=== PATIENT | male | born 1990 | race Caucasian/White ===

== ENCOUNTER 2025-05-24 17:33 | Emergency (ER) | payer OTHER, SELFPAY ==
--- NOTE | 2025-05-24 17:36 | ED.MALEGU ---
HPI - Male Genitourinary General Chief complaint: Urogenital-Male Stated complaint: Groin Pain Time Seen by Provider: 05/24/25 17:47 Source: patient and RN notes reviewed Mode of arrival: ambulatory Limitations: no limitations History of Present Illness HPI Narrative: 35-year-old male presents with concern for right testicle pain. He reports symptoms for 4-5 days. He denies any swollen testicle, red testicle. Reports it is slightly tender to touch. He denies fever, aches, chills, sweats. He denies dysuria, frequency, urgency, penile discharge. He is not concern for STDs. MD Complaint: testicle pain Related Data Allergies Allergy/AdvReac Type Severity Reaction Status Date / Time No Known Allergies Allergy Verified 05/24/25 17:37 Review of Systems Review of Systems: CONSTITUTIONAL: Denies malaise, chills, sweats, or fever. CARDIOVASCULAR: Denies chest pain, palpitations, or edema. RESPIRATORY: Denies cough or dyspnea. GASTROINTESTINAL: Denies abdominal pain, nausea, vomiting, diarrhea GENITOURINARY: Reports tenderness in the right scrotum. He Denies dysuria, frequency, urgency, suprapubic pressure. Denies flank pain or hematuria. SKIN: Denies rash or itching. MUSCULOSKELETAL: Denies back pain or myalgia. All systems reviewed & are unremarkable except as noted in HPI and below PMFSH Family History Family History (Updated 08/11/18 @ 16:13 by DOCTOR UNKNOWN) Father Diabetes mellitus Patient's father is in good health Other Hypertension Social History Social History Smoking status: Former smoker Smoking end date: 10/27/16 Alcohol intake: current Comments At time of signature, agree with nursing past medical, surgical, social and family history. There is no relevant family history pertinent to the presenting complaint Exam Narrative: GENERAL: Well-appearing, well-nourished, and in no acute distress. HEAD: Normocephalic. EYES: PERRLA, conjunctivae clear. NECK: Supple. No lymphadenopathy CHEST: Clear to auscultation. No respiratory distress. HEART: Regular rate and rhythm. SKIN: Warm, dry, no rash. NEURO: Alert and oriented x3. PSYCH: Normal mood and affect Course Course Emergency Course: Patient is aware of diagnosis, understands and agrees to treatment plan. Anticipatory guidance given. Patient agrees to follow-up as directed and is aware of reasons to seek care at the emergency department. Portions of this record may have been created with voice recognition software Level of Care: Express Care Visit Vital Signs Vital signs: Reviewed. Critical Care Time Critical Care Time Critical Care Time: No Discharge Plan Discharge Clinical Impression: Epididymitis Patient Disposition: Home Condition: Stable Instructions: Antibiotic Form, Epididymitis (ED) Additional Instructions: 1) Please follow-up with your primary care doctor in the next 1-2 days. 2) If you have any worsening of symptoms or any other urgent concerns please go to the ER. 3) Please take medications as prescribed and continue taking your home medications as usual. 4) Please read and follow information included in discharge instructions. Patient Language: Nepali Prescriptions: New ciprofloxacin HCl 500 mg tablet 500 mg PO Q12H 7 Days Qty: 14 0RF Follow-up/Referrals: PHYSICIAN,[facility] [facility] [Primary Care Provider] - Time of Disposition: 17:52
[2025-05-24 17:43] VITALS: BP 128/88; PULSE 80; RESP 16; TEMP 36.8; O2SAT 98
== END 2025-05-24 17:53 | disposition home or self-care (01) ==
PROVIDERS: Emergency Provider Nurse Practitioner
DX: N45.1 Epididymitis (principal); Z87.891 Personal history of nicotine dependence
CPT/HCPCS: 99213; G0463